=== PATIENT | male | born 1970 | race Caucasian/White ===

== ENCOUNTER 2019-03-03 23:12 | Emergency (ER) | payer OTHER ==
[~2019-03-03] VITALS: Ht 167.6 cm; Wt 114.8 kg
--- NOTE | 2019-03-03 23:19 | PHYS DOC ---
Adult General Chief Complaint Chief Complaint: ".. I a long story.. I almost got my arm ripped off doing some breast clearing in [place] back on ... The arm got infected and then about a week before [place].. it got infected.. and I got admitted to ... They did more repeat... debriding... And I been on Vanco twice a day and ertapenem once a day since,,, I was trying to give my of vanco... tonight and I got severe chest pain...." HPI HPI Patient is a 48 year old male who presents with above hx and complaints of chest pain, central, and sharp with attempt to give Vanco thru. his Lt. anti-cubital PICC line. Vision states the home nurse had double drawing blood cultures earlier today. Patient states when he attempted to give the vancomycin he developed very sharp pain in his chest. Patient still has pain with deep breaths but not on expiration. PICC line has been present since 02/25 . The patient has had deep tissue infection in right arm that was damaged in a heavy equipment accident back on January 16. Arm become infected post surgery and required additional rebleeding and re- admission on February 20. Patient states he also gives himself heparin daily to prevent blood clots and had been on Lovenox in the past. Patient does think see his tetanus was updated with the initial injury. Patient has been following at surgery and infectious disease and has an appointment tomorrow. Review of Systems Review of Systems Constitutional: Denies fever or chills [] Eyes: Denies change in visual acuity, redness, or eye pain [] HENT: Denies nasal congestion or sore throat [] Respiratory: Denies cough or shortness of breath [] Cardiovascular: No additional information not addressed in HPI [] GI: Denies abdominal pain, nausea, vomiting, bloody stools or diarrhea [] : Denies dysuria or hematuria [] Musculoskeletal: Denies back pain or joint pain [] Integument: Denies rash or skin lesions [] Neurologic: Denies headache, focal weakness or sensory changes [] Endocrine: Denies polyuria or polydipsia [] All other systems were reviewed and found to be within normal limits, except as documented in this note. Family History Family History Noncontributory to presentation Current Medications Current Medications See nursing for home meds Allergies Allergies No known drug allergies Physical Exam Physical Exam Constitutional: Moderate acute acute distress, non-toxic appearance. [] HENT: Normocephalic, atraumatic, bilateral external ears normal, oropharynx moist, no oral exudates, nose normal. [] Eyes: PERRLA, EOMI, conjunctiva normal, no discharge. [] Neck: Normal range of motion, no tenderness, supple, no stridor. [] Cardiovascular: Tachycardia Heart rate regular rhythm, no murmur [] Lungs & Thorax: Bilateral breath sounds equal at apex on auscultation [] Abdomen: Bowel sounds normal, soft, no tenderness, no masses, no pulsatile masses. [] Skin: Warm, dry, no erythema, no rash. [] Left arm cellulitis covered with an sherie wrap dressing. Back: No tenderness, no CVA tenderness. [] Extremities: No tenderness, no cyanosis, no clubbing, ROM intact, no edema. [] Has a PICC line in left antecubital site Neurologic: Alert and oriented X 3, normal motor function, normal sensory function, no focal deficits noted. [] Psychologic: Affect anxious, judgement normal, mood normal. [] EKG EKG My interpretation EKG shows a sinus rhythm at 88 bpm. There is some nonspecific anterior septal changes. But no findings of acute STEMI of contralateral changes.[] Radiology/Procedures Radiology/Procedures [][place] [address] IMAGING REPORT Signed PATIENT: LEONARD JIMENEZ ACCOUNT: [id number] : 1970 LOCATION: ER AGE: 48 SEX: M EXAM STATUS: REG ER ORD. PHYSICIAN: MAGDA FLORES MD REASON: Chest pain, FAILED PICC LINE, OMNI 350, 100ml PROCEDURE: CT ANGIOGRAPHY CHEST Study: CT CHEST WITH CONTRAST - PULMONARY ANGIOGRAM History: Chest pain. Comparison: None. Technique: Helical CT of the chest performed after the administration of 100 cc Omnipaque 350 intravenous contrast and timed for angiographic evaluation of the pulmonary arteries per PE protocol. Coronal and sagittal 3D MIP reformations were obtained. One or more of the following individualized dose reduction techniques were utilized for this examination: 1. Automated exposure control 2. Adjustment of the mA and/or kV according to patient size 3. Use of iterative reconstruction technique. Findings: No pulmonary embolism is identified. Normal main pulmonary artery caliber. Calcific coronary artery disease. No aneurysmal dilatation of the aorta. Patent great vessel origins. Tiny hiatal hernia. Mildly prominent right paratracheal lymph node on image 52 series 6 measuring 1.1 cm No confluent airspace opacity, pleural effusion or pneumothorax. No suspicious pulmonary nodule by size criteria. A left-sided PICC is malpositioned with a portion of the tubing looped up into the left internal jugular vein and the tip extending left lateral to the left brachiocephalic vein, image 46 series 6, potentially within a small branch vessel that is difficult to characterize due to size. No surrounding hematoma. No acute osseous abnormality. IMPRESSION: 1. No CTA evidence for pulmonary embolism. Collectively, no acute abnormality identified to account for the patient's symptoms. 2. Malpositioned left-sided PICC which is looped up into the left internal jugular vein. The tip extends to the left of the brachiocephalic vein presumably within a small branch vessel. No surrounding hemorrhage to suggest perforation outside of the vessel lumen. Electronically signed by: MEGHA CASTRO MD (03/04/2019 2:01 AM) [facility] [place] DICTATED AND SIGNED BY: MEGHA CASTRO MD DATE: 03/04/19 020 CC: MAGDA FLORES MD; PCP,NO ~ Course & Med Decision Making Course & Med Decision Making Pertinent Labs and Imaging studies reviewed. (See chart for details) Discussed option s of treatment with pt.. and . Elects to follow up with ID at as scheduled this morning. To continue antibiotics as directed. Since pt. has chest pain with use of PIC would stop use. Review the CXR and CT findings with ID. May need withdrawal of PIC line to a larger vessel. Discussed elevated D-dimer, will cover with Lovenox tonight. To resume his Heparin prophylaxis as previously discussed directed.. Leave current good IV and left arm for administration of his antibiotics and heparin as previous directed. Patient return if any concerns. Advised patient he may need an ultrasound of left arm to evaluate for DVT. Must keep follow-up with infectious diseases morning. Patient issued a copy of the EKG and current labs Impression: 1. Chest Pain 2. Hx of Cellulitis and fasciculitis and deep tissue infection right arm- S/P surgical debridement x 2 [facility] 3. Elevated D-dimer 1.06 4. Possible mal positioned PIC line - small branch of the brachiocephalic vein 5. Mild elevation Sed Rate 28 6. Mild elevation of Glucose 123 [] Dragon Disclaimer Dragon Disclaimer This electronic medical record was generated, in whole or in part, using a voice recognition dictation system. Departure Departure: Disposition: 01 HOME/RESIDENCE PRIOR TO ADM Condition: STABLE Dragon Disclaimer This chart was dictated in whole or in part using Voice Recognition software in a busy, high-work load, and often noisy Emergency Department environment. It may contain unintended and wholly unrecognized errors or omissions. MAGDA FLORES MD Mar 03, 2019 23:19
[2019-03-03] MEDS ORDERED: VANCOMYCIN 1 GM in IV NORMAL SALINE 250ML 250 ML IV ONE (23:30)
[2019-03-03] MEDS ORDERED: ASPIRIN 81 MG TAB.CHEW PO ONE (23:30)
[2019-03-04 00:12] LABS: BASO # 0.1 x10^3/uL (0.0-0.2); BASO % 2 % (0-3); EOS # 0.4 x10^3/uL (0.0-0.7); EOS % 5 % (0-3); HEMATOCRIT 39.9 % (39.0-53.0); HEMOGLOBIN 13.9 g/dL (13.0-17.5); LYMPH # 2.4 x10^3/uL (1.0-4.8); LYMPH % 31 % (24-48); MEAN CORPUSCULAR HEMOGLOBIN 28 pg (25-35); MEAN CORPUSCULAR HGB CONC 35 g/dL (31-37); MEAN CORPUSCULAR VOLUME 81 fL (79-100); MONO # 0.5 x10^3/uL (0.0-1.1); MONO % 6 % (0-9); NEUT # 4.4 x10^3uL (1.8-7.7); NEUT % 56 % (31-73); PLATELET COUNT 244 x10^3/uL (140-400); RED BLOOD COUNT 4.92 x10^6/uL (4.30-5.70); RED CELL DISTRIBUTION WIDTH 14.6 % (11.5-14.5); WHITE BLOOD COUNT 7.8 x10^3/uL (4.0-11.0)
[2019-03-04] MEDS ORDERED: CONTRAST GIVEN MC PRN (00:15)
[2019-03-04] MEDS ORDERED: IOHEXOL 350 MG/ML 100 ML VIAL. IV ONE (00:15)
[2019-03-04 00:20] LABS: BARBITURATES NEG (NEG); BENZODIAZEPINES NEG (NEG); CANNABINOIDS NEG (NEG); COCAINE NEG (NEG); METHADONE NEG (NEG); OPIATES NEG (NEG); PHENCYCLIDINE NEG (NEG)
[2019-03-04 00:24] LABS: CALCIUM 8.8 mg/dL (8.5-10.1); CREATININE 0.8 mg/dL (0.7-1.3); GFR 102.7; POTASSIUM 3.7 mmol/L (3.5-5.1)
[2019-03-04 00:26] LABS: BACTERIA,URINE 0 /HPF (0-FEW); BILIRUBIN,URINE NEG (NEG); CLARITY,URINE CLEAR; COLOR,URINE YELLOW; GLUCOSE,URINE NEG (NEG); NITRITE,URINE NEG (NEG); RBC,URINE 0 /HPF (0-2); SQUAMOUS EPITHELIAL CELL,UR OCC /LPF; UROBILINOGEN,URINE 0.2 mg/dL (0.2 mg/dL); WBC,URINE RARE /HPF (0-4)
[2019-03-04 00:28] LABS: AMPHETAMINE/METHAMPHETAMINE NEG (NEG)
[2019-03-04] MEDS ORDERED: VANCOMYCIN 2 GM in IV NORMAL SALINE 500ML 500 ML IV ONE (00:30)
[2019-03-04] MEDS ORDERED: ENOXAPARIN ** NOTE DOSE ** SYRINGE SQ ONE (00:30)
[2019-03-04 00:36] LABS: ALBUMIN 3.6 g/dL (3.4-5.0); DIRECT BILIRUBIN 0.1 mg/dL (0.0-0.2); MAGNESIUM 1.9 mg/dL (1.8-2.4); TOTAL BILIRUBIN 0.2 mg/dL (0.2-1.0)
[2019-03-04] MEDS ORDERED: IV NORMAL SALINE 500ML 500 ML ONE (00:57)
[2019-03-04] MEDS ORDERED: VANCOMYCIN 1 GM VIAL. ONE (00:57)
[2019-03-04 01:07] LABS: SEDIMENTATION RATE 23 (0-15)
--- NOTE | 2019-03-04 02:04 | RAD ---
Study: CT CHEST WITH CONTRAST - PULMONARY ANGIOGRAM History: Chest pain. Comparison: None. Technique: Helical CT of the chest performed after the administration of 100 cc Omnipaque 350 intravenous contrast and timed for angiographic evaluation of the pulmonary arteries per PE protocol. Coronal and sagittal 3D MIP reformations were obtained. One or more of the following individualized dose reduction techniques were utilized for this examination: 1. Automated exposure control 2. Adjustment of the mA and/or kV according to patient size 3. Use of iterative reconstruction technique. Findings: No pulmonary embolism is identified. Normal main pulmonary artery caliber. Calcific coronary artery disease. No aneurysmal dilatation of the aorta. Patent great vessel origins. Tiny hiatal hernia. Mildly prominent right paratracheal lymph node on image 52 series 6 measuring 1.1 cm No confluent airspace opacity, pleural effusion or pneumothorax. No suspicious pulmonary nodule by size criteria. A left-sided PICC is malpositioned with a portion of the tubing looped up into the left internal jugular vein and the tip extending left lateral to the left brachiocephalic vein, image 46 series 6, potentially within a small branch vessel that is difficult to characterize due to size. No surrounding hematoma. No acute osseous abnormality. IMPRESSION: 1. No CTA evidence for pulmonary embolism. Collectively, no acute abnormality identified to account for the patient's symptoms. 2. Malpositioned left-sided PICC which is looped up into the left internal jugular vein. The tip extends to the left of the brachiocephalic vein presumably within a small branch vessel. No surrounding hemorrhage to suggest perforation outside of the vessel lumen. Electronically signed by: MEGHA CASTRO MD (03/04/2019 2:01 AM) [facility]
[2019-03-04 03:45] VITALS: BP 134/78
--- NOTE | 2019-03-04 07:57 | RAD ---
CHEST PA LATERAL History: Chest pain Comparison: CT of the chest 03/03/2019. Findings: Frontal and lateral views of chest were obtained. Left-sided PICC is identified coiled within the left internal jugular vein and then continuing inferiorly to terminate within the left brachycephalic vein. The cardiomediastinal silhouette is normal. Pulmonary vasculature is normal. The lungs are clear. No pleural effusion or pneumothorax is seen. There is no acute bone abnormality. IMPRESSION: No acute cardiopulmonary process. Left-sided PICC loops within the left internal jugular vein prior to terminating within the left brachiocephalic vein. Electronically signed by: Michele Finn MD (03/04/2019 7:55 AM) [facility]
== END 2019-03-04 03:45 | disposition home or self-care (01) ==
LOC: ER 23:12
DX: R07.89 Other chest pain (principal); R79.1 Abnormal coagulation profile; R70.0 Elevated erythrocyte sedimentation rate; R73.02 Impaired glucose tolerance (oral)
CPT/HCPCS: 36415; 71046; 71275; 80048; 80076; 80307; 81001; 82550; 83605; 83690; 83735; 83880; 84443; 84484; 85025; 85379; 85610; 85651; 85730; 87040; 93005; 96365; 96366; 96372; 99285; J1650; J3370; J7040; Q9967; 94640

== ENCOUNTER 2019-03-05 17:55 | Emergency (ER) | payer OTHER ==
[~2019-03-05] VITALS: Ht 167.6 cm; Wt 114.8 kg
[2019-03-05 18:09] VITALS: BP 162/94
--- NOTE | 2019-03-05 18:33 | PHYS DOC ---
Past History Past Medical History: Other Additional Past Medical Histor: Skin and wound care Past Surgical History: Other Additional Past Surgical Histo: Skin and wound care right arm Alcohol Use: None Drug Use: None Adult General Chief Complaint Chief Complaint: OTHER COMPLAINTS... " My IV blew.. I still have one more dosages of antibiotics tonight..." HPI HPI Patient is a 48 year old male who presents with above hx and complaints loss of I V for his antibiotics.. Pt has follow up at tomorrow. Seen previously for PICC line mal function. That line has been pulled. Pt. to have skin graft with surgery and replacement of PICC line at . Needs IV for Vanco tonight. Patient no longer has chest Pain complaints as he had on previous visit. See prior record. 03/03/19. Review of Systems Review of Systems Constitutional: Denies fever or chills [] Eyes: Denies change in visual acuity, redness, or eye pain [] HENT: Denies nasal congestion or sore throat [] Respiratory: Denies cough or shortness of breath [] Cardiovascular: No additional information not addressed in HPI [] GI: Denies abdominal pain, nausea, vomiting, bloody stools or diarrhea [] : Denies dysuria or hematuria [] Musculoskeletal: Denies back pain or joint pain [. Pt. right arm undergoing revision-grafting at this week Integument: Denies rash or skin lesions [] Neurologic: Denies headache, focal weakness or sensory changes [] Endocrine: Denies polyuria or polydipsia [] All other systems were reviewed and found to be within normal limits, except as documented in this note. Family History Family History Noncontributory Current Medications Current Medications See nursing for home meds Allergies Allergies Allergies Coded Allergies Type Severity Reaction Last Updated Verified No Known Drug Allergies 03/04/19 No Physical Exam Physical Exam Constitutional: Well developed, well nourished, no acute distress, non-toxic appearance. [] HENT: Normocephalic, atraumatic, bilateral external ears normal, oropharynx moist, no oral exudates, nose normal. [] Eyes: PERRLA, EOMI, conjunctiva normal, no discharge. [] Neck: Normal range of motion, no tenderness, supple, no stridor. [] Cardiovascular:Heart rate regular rhythm, no murmur [] Lungs & Thorax: Bilateral breath sounds clear to auscultation [] Abdomen: Bowel sounds normal, soft, no tenderness, no masses, no pulsatile masses. [] Skin: Warm, dry, no erythema, no rash. [] Back: No tenderness, no CVA tenderness. [] Extremities: No tenderness, no cyanosis, no clubbing, ROM intact, no edema. [] Right arm and compression dressing. I V Lt arm infiltrated. Neurologic: Alert and oriented X 3, normal motor function, normal sensory function, no focal deficits noted. [] Psychologic: Affect anxious, judgement normal, mood normal. [] Current Patient Data Vital Signs Vital Signs Date Time Temp Pulse Resp B/P (MAP) Pulse Ox O2 Delivery O2 Flow Rate FiO2 03/05/19 18:09 98.2 89 18 96 Room Air EKG EKG [] Radiology/Procedures Radiology/Procedures [] Course & Med Decision Making Course & Med Decision Making Pertinent Labs and Imaging studies reviewed. (See chart for details) Keep follow up with [facility]. Continue Antibiotics as previously directed. Impression: 1. Need for IV access 2. Hx Deep Tissue Infection Rt. Arm and work injury ( Follow at [facility] and ID) [] Dragon Disclaimer Dragon Disclaimer This electronic medical record was generated, in whole or in part, using a voice recognition dictation system. Departure Departure: Disposition: 01 HOME/RESIDENCE PRIOR TO ADM Condition: STABLE Referrals: PCP,NO (PCP) [place] Disclaimer This chart was dictated in whole or in part using Voice Recognition software in a busy, high-work load, and often noisy Emergency Department environment. It may contain unintended and wholly unrecognized errors or omissions. MAGDA FLORES MD Mar 05, 2019 18:33
== END 2019-03-05 18:43 | disposition home or self-care (01) ==
LOC: ER 17:55
DX: Z45.2 Encounter for adjustment and management of vascular access device (principal)
CPT/HCPCS: 99284